=== PATIENT | male | born 1975 | race African-American/Black ===

== ENCOUNTER 2016-05-18 17:29 | Emergency (ER) | payer BC ==
[~2016-05-18] VITALS: Ht 175.3 cm; Wt 89.0 kg
[2016-05-18] MEDS ORDERED: WELLBUTRIN SR150 MG PO (17:41)
[2016-05-18 20:00] VITALS: BP 120/77
== END 2016-05-18 20:15 | disposition home or self-care (01) ==
LOC: EDBD 17:29 → EME 17:29
PROC: 0RSKXZZ Reposition Left Shoulder Joint, External Approach (ICD-10-PCS; principal; 2016-05-18)
DX: S43.005A Unspecified dislocation of left shoulder joint, initial encounter (principal); W19.XXXA Unspecified fall, initial encounter; Y93.23 Activity, snow (alpine) (downhill) skiing, snowboarding, sledding, tobogganing and snow tubing
CPT/HCPCS: 73020; 73030; 99281; 99285; J3010